=== PATIENT | female | born 1955 | race Caucasian/White ===

== ENCOUNTER → 2017-05-01 | Outpatient (CLI) | payer OTHER ==
[~2017-05-01] MED LIST: ? ANTIDEPRESSANT; ALBIPROI INH; ALBU.083IS IH; ALBU3IS INH; ALBU90OI; ALBU90OI INH; ALBU90OI6 INH; ALBU90OI61; ALBU90OI61 INH; ALBUIS IH; AMLO5; AMLO5 PO; ARIP15 PO; ARIP20; ARIP30 PO; ASPI325 PO; ATORVASTATIN; AZIT250; AZIT250 PO; AZIT500 PO; BECL40OI INH; BECL80OI INH; BENZ100A PO; BUDE6HFA; BUDE6HFA INH; CHOL10002; CLON2 PO; DIPH25; DIPH25 PO; DIPH50; DOXY100 PO; Duoneb 2.5-0.5 M3 ML INH; ERYT333ERA PO; ESCI20; ESCI5; FLUSAL2505; FLUT44OIA; FURO20 PO; FURO40 PO; GABA300 PO; GUAI600T33 PO; HYDACE10B; HYDACE10B PO; HYDACE5; HYDACE5 PO; HYDACE5325 PO; HYDCHL25; HYDCHL25 PO; HYDGUAL120 PO; HYDPAM25; LAMO100; LISHYD1012; LISHYD1012 PO; LISI20; LISI5 PO; LISINOPRIL; Lasix40 MG PO; METCAR500 PO; METF500 PO; METF500C PO; METO2.5 PO; METPRE4DP PO; MONT10T; MONT10T PO; NAPR500; NITR.4SL SL; NITR.6SL SC; Nitrostat0.4 MG SL; OXYACE5T PO; OXYACE7.5T PO; OXYB5; POTCHL10ER PO; PRAV20; PRAV20 PO; PRAV40 PO; PRED10 PO; PRED20 PO; PRED5 PO; Pravachol80 MG PO; Prednisone50 MG PO; Prinivil10 MG PO; RANI150; RANI150 PO; RXCODGUASY PO; RXDIPHSY PO; RXHYDGUAS PO; RXHYDMOR2 PO; RXLORA1 PO; SERT100; SPIHYD; SPIR25 PO; SULTRIDS PO; TERB250; TIOT18; TIOT18 IH; TIOT18 PO; TOLT2ER; TRAZ150T57 PO; Ventolin Soln3 ML INH; WATER PILL; Zantac150 MG PO; [UNRECOGNIZED DRUG - CODE]; [UNRECOGNIZED DRUG - REMARK]
== END ==
LOC: LAB 10:46
DX: R82.99 Other abnormal findings in urine (principal)
CPT/HCPCS: 87086

== ENCOUNTER → 2017-06-20 | Outpatient (CLI) | payer OTHER | END | disposition home or self-care (01) | LOC: LAB 14:47 | DX: N39.0 Urinary tract infection, site not specified (principal) | CPT/HCPCS: 87077; 87086; 87186 ==

== ENCOUNTER → 2017-10-12 | Outpatient (CLI) | payer OTHER ==
[~2017-10-12] MED LIST changes: -ATORVASTATIN; -Duoneb 2.5-0.5 M3 ML INH; -METF500C PO; -PRED5 PO; -Prednisone50 MG PO
[2017-10-12 20:37] LABS: Alanine Aminotransfer (ALT/SGP 33 U/L (12-78); Albumin, Blood 3.7 g/dL (3.4-5.0); Albumin/Globulin Ratio 1.2 (0.8-1.8); Alk Phos 84 U/L (50-136); Anion Gap 9 mmol/L (6-16); Aspartate Aminotrans (AST/SGOT 21 U/L (12-37); Bilirubin, Total 0.4 mg/dL (0.1-1.0); Blood Urea Nitrogen 13 mg/dL (8-24); Bun/Creatinine Ratio 15.2 (12.0-20.0); CO2, Blood 26 mmol/L (21-32); Calcium, Blood 8.9 mg/dL (8.5-10.1); Chloride, Blood 103 mmol/L (98-108); Creatinine, Blood 0.85 mg/dL (0.40-1.00); Globulin, Blood 3.2 g/dL (2.2-4.0); Glomerular Filtration Rate >60 (60-); Glucose, Blood 92 mg/dL (70-99); Potassium, Blood 3.7 mmol/L (3.5-5.5); Sodium, Blood 138 mmol/L (136-145); Total Protein, Blood 6.9 g/dL (6.4-8.2)
== END ==
LOC: LAB 17:03 → LAB SHORT 17:03
DX: N39.0 Urinary tract infection, site not specified (principal)
CPT/HCPCS: 80053; 87086

== ENCOUNTER 2017-10-28 17:14 | Emergency (ER) | payer OTHER ==
[~2017-10-28] VITALS: Ht 165.1 cm; Wt 105.2 kg
[~2017-10-28 17:14] MED LIST changes: +ATORVASTATIN; +Duoneb 2.5-0.5 M3 ML INH; +METF500C PO; +Prednisone50 MG PO
[2017-10-28] MEDS ORDERED: PRED5 PO (17:44)
== END 2017-10-28 17:52 | disposition home or self-care (01) ==
LOC: ER 17:14
DX: Z76.0 Encounter for issue of repeat prescription (principal); J44.9 Chronic obstructive pulmonary disease, unspecified; I10 Essential (primary) hypertension; F31.9 Bipolar disorder, unspecified; E11.9 Type 2 diabetes mellitus without complications; F17.210 Nicotine dependence, cigarettes, uncomplicated; Z88.8 Allergy status to other drugs, medicaments and biological substances; Z79.899 Other long term (current) drug therapy; Z79.84 Long term (current) use of oral hypoglycemic drugs; Z79.82 Long term (current) use of aspirin
CPT/HCPCS: 99281

== ENCOUNTER → 2017-10-30 | Outpatient (CLI) | payer OTHER ==
[~2017-10-30] MED LIST changes: +PRED5 PO
[2017-10-30 19:24] LABS: Albumin, Blood 3.5 g/dL (3.4-5.0); Bilirubin, Total 0.4 mg/dL (0.1-1.0); Bun/Creatinine Ratio 18.3 (12.0-20.0); Calcium, Blood 8.9 mg/dL (8.5-10.1); Creatinine, Blood 1.2 mg/dL (0.40-1.00); Globulin, Blood 3.4 g/dL (2.2-4.0); Potassium, Blood 4.1 mmol/L (3.5-5.5); Total Protein, Blood 6.9 g/dL (6.4-8.2)
== END ==
LOC: LAB SHORT 19:10 → LAB EV 19:10
PROVIDERS: Physician Assistant Medical
DX: R60.9 Edema, unspecified (principal)
CPT/HCPCS: 80053; 83880

== ENCOUNTER 2017-11-20 21:07 | Emergency (ER) | payer OTHER ==
[~2017-11-20] VITALS: Ht 165.1 cm; Wt 104.3 kg
== END 2017-11-20 22:29 | disposition left against medical advice (07) ==
LOC: ER 21:07
DX: Z53.21 Procedure and treatment not carried out due to patient leaving prior to being seen by health care provider (principal)
CPT/HCPCS: 82947

== ENCOUNTER → 2017-11-28 | Outpatient (CLI) | payer OTHER | END | disposition home or self-care (01) | LOC: LAB SHORT 19:00 → LAB EV 19:00 | DX: R30.0 Dysuria (principal); R35.0 Frequency of micturition | CPT/HCPCS: 87086 ==

== ENCOUNTER → 2017-12-13 | Outpatient (CLI) | payer OTHER | LOC: LAB SHORT 16:00 → LAB SRC 16:00 | DX: R30.0 Dysuria (principal) | CPT/HCPCS: 87086 ==

== ENCOUNTER → 2018-06-03 | Outpatient (CLI) | payer OTHER ==
[2018-06-05 12:07] LABS: HPV 16 Negative (Negative); HPV 18 Negative (Negative); HPV OTHER HR TYPES Negative (Negative)
== END | disposition home or self-care (01) ==
LOC: LAB SHORT 17:57 → LAB 17:57
PROVIDERS: Nurse Practitioner Women's Health
DX: Z12.72 Encounter for screening for malignant neoplasm of vagina (principal); Z91.89 Other specified personal risk factors, not elsewhere classified
CPT/HCPCS: 87624; G0123

== ENCOUNTER 2018-08-31 10:20 | Emergency (ER) | payer OTHER ==
[~2018-08-31] VITALS: Ht 157.5 cm; Wt 127.0 kg
[2018-08-31 11:28] LABS: BASOPHILS ABSOLUTE AUTO 0.03 K/mm3 (0.00-0.23); BASOPHILS PERCENT AUTO 1 % (0-2); EOSINOPHILS ABSOLUTE AUTO 0.18 K/mm3 (0.00-0.68); EOSINOPHILS PERCENT AUTO 3 % (0-6); Hematocrit 40.1 % (33.0-51.0); Hemoglobin 12.8 g/dL (11.5-16.0); IMMATURE GRAN ABSOLUTE AUTO 0.03 K/mm3 (0.00-0.10); IMMATURE GRAN PERCENT AUTO 1 % (0-1); LYMPHOCYTES ABSOLUTE AUTO 1.13 K/mm3 (0.84-5.20); LYMPHOCYTES PERCENT AUTO 18 % (21-46); MONOCYTES ABSOLUTE AUTO 0.58 K/mm3 (0.16-1.47); MONOCYTES PERCENT AUTO 9 % (4-13); Mean Corpuscular HGB 30.3 pg (26.0-34.0); Mean Corpuscular HGB Conc 31.9 g/dL (31.5-36.5); Mean Corpuscular Volume 95 fL (80-100); Mean Platelet Volume 10.5 fL (9.1-12.4); NEUTROPHILS ABSOLUTE AUTO 4.33 K/mm3 (1.96-9.15); NEUTROPHILS PERCENT AUTO 69 % (41-73); Platelet Count 206 K/mm3 (150-400); RDW Coefficient Variation 12.7 % (11.7-14.2); RDW Standard Deviation 44.6 fL (35.1-46.3); Red Blood Cell Count 4.22 M/mm3 (3.80-5.20); White Blood Cell Count 6.28 K/mm3 (4.00-11.30)
[2018-08-31 11:51] LABS: Alanine Aminotransfer (ALT/SGP 27 U/L (12-78); Albumin, Blood 3.4 g/dL (3.4-5.0); Alk Phos 107 U/L (50-136); Anion Gap 7 mmol/L (6-16); Aspartate Aminotrans (AST/SGOT 16 U/L (12-37); Bilirubin, Total 0.3 mg/dL (0.1-1.0); Blood Urea Nitrogen 17 mg/dL (8-24); CO2, Blood 22 mmol/L (21-32); Calcium, Blood 8.7 mg/dL (8.5-10.1); Chloride, Blood 111 mmol/L (98-108); Globulin, Blood 3.3 g/dL (2.2-4.0); Glomerular Filtration Rate >60 (60-); Glucose, Blood 104 mg/dL (70-99); Potassium, Blood 4.6 mmol/L (3.5-5.5); Sodium, Blood 140 mmol/L (136-145); Total Protein, Blood 6.7 g/dL (6.4-8.2); Troponin I <0.015 ng/mL (0.000-0.040)
== END 2018-08-31 16:32 | disposition home or self-care (01) ==
LOC: ER 10:20
PROVIDERS: Emergency Medicine
DX: R07.9 Chest pain, unspecified (principal); J44.9 Chronic obstructive pulmonary disease, unspecified; I10 Essential (primary) hypertension; E11.9 Type 2 diabetes mellitus without complications; F31.9 Bipolar disorder, unspecified; F17.210 Nicotine dependence, cigarettes, uncomplicated; Z88.8 Allergy status to other drugs, medicaments and biological substances; Z88.1 Allergy status to other antibiotic agents; Z79.899 Other long term (current) drug therapy; Z79.52 Long term (current) use of systemic steroids; Z79.82 Long term (current) use of aspirin
CPT/HCPCS: 36415; 71046; 80053; 83690; 84484; 85025; 93005; 93010; 99285-25

== ENCOUNTER 2018-09-01 11:14 | Emergency (ER) | payer OTHER ==
[~2018-09-01] VITALS: Ht 165.1 cm; Wt 117.9 kg
[2018-09-01 12:18] LABS: BASOPHILS ABSOLUTE AUTO 0.03 K/mm3 (0.00-0.23); BASOPHILS PERCENT AUTO 1 % (0-2); EOSINOPHILS ABSOLUTE AUTO 0.16 K/mm3 (0.00-0.68); EOSINOPHILS PERCENT AUTO 3 % (0-6); Hematocrit 39.5 % (33.0-51.0); Hemoglobin 12.9 g/dL (11.5-16.0); IMMATURE GRAN ABSOLUTE AUTO 0.03 K/mm3 (0.00-0.10); IMMATURE GRAN PERCENT AUTO 1 % (0-1); LYMPHOCYTES ABSOLUTE AUTO 1.09 K/mm3 (0.84-5.20); LYMPHOCYTES PERCENT AUTO 17 % (21-46); MONOCYTES ABSOLUTE AUTO 0.44 K/mm3 (0.16-1.47); MONOCYTES PERCENT AUTO 7 % (4-13); Mean Corpuscular HGB 30.4 pg (26.0-34.0); Mean Corpuscular HGB Conc 32.7 g/dL (31.5-36.5); Mean Corpuscular Volume 93 fL (80-100); Mean Platelet Volume 10.7 fL (9.1-12.4); NEUTROPHILS ABSOLUTE AUTO 4.54 K/mm3 (1.96-9.15); NEUTROPHILS PERCENT AUTO 72 % (41-73); Platelet Count 234 K/mm3 (150-400); RDW Coefficient Variation 12.8 % (11.7-14.2); RDW Standard Deviation 43.6 fL (35.1-46.3); Red Blood Cell Count 4.24 M/mm3 (3.80-5.20); White Blood Cell Count 6.29 K/mm3 (4.00-11.30)
[2018-09-01 12:29] LABS: Alanine Aminotransfer (ALT/SGP 27 U/L (12-78); Albumin, Blood 3.5 g/dL (3.4-5.0); Albumin/Globulin Ratio 1.1 (0.8-1.8); Alk Phos 107 U/L (50-136); Anion Gap 7 mmol/L (6-16); Aspartate Aminotrans (AST/SGOT 11 U/L (12-37); Bilirubin, Total 0.3 mg/dL (0.1-1.0); Blood Urea Nitrogen 18 mg/dL (8-24); Bun/Creatinine Ratio 16.2 (12.0-20.0); CO2, Blood 26 mmol/L (21-32); Calcium, Blood 9.3 mg/dL (8.5-10.1); Chloride, Blood 109 mmol/L (98-108); Creatinine, Blood 1.11 mg/dL (0.40-1.00); Globulin, Blood 3.3 g/dL (2.2-4.0); Glomerular Filtration Rate 53 (60-); Glucose, Blood 133 mg/dL (70-99); Potassium, Blood 4.2 mmol/L (3.5-5.5); Sodium, Blood 142 mmol/L (136-145); Total Protein, Blood 6.8 g/dL (6.4-8.2); Troponin I <0.015 ng/mL (0.000-0.040)
== END 2018-09-01 13:26 | disposition home or self-care (01) ==
LOC: ER 11:14
PROVIDERS: Emergency Medicine
DX: R07.9 Chest pain, unspecified (principal); J44.9 Chronic obstructive pulmonary disease, unspecified; I10 Essential (primary) hypertension; E11.9 Type 2 diabetes mellitus without complications; F31.9 Bipolar disorder, unspecified; F17.210 Nicotine dependence, cigarettes, uncomplicated; Z88.8 Allergy status to other drugs, medicaments and biological substances; Z79.899 Other long term (current) drug therapy; Z79.82 Long term (current) use of aspirin
CPT/HCPCS: 36415; 80053; 83690; 84484; 85025; 93005; 93010; 99285-25

== ENCOUNTER → 2018-12-30 | Outpatient (CLI) | payer OTHER | END | disposition home or self-care (01) | LOC: LAB SHORT 14:44 → LAB UCHC 14:44 | DX: R10.9 Unspecified abdominal pain (principal) | CPT/HCPCS: 87086 ==

== ENCOUNTER 2019-08-01 14:47 | Emergency (ER) | payer OTHER ==
[~2019-08-01] VITALS: Ht 165.1 cm; Wt 117.9 kg
[2019-08-01 15:37] LABS: BASOPHILS ABSOLUTE AUTO 0.05 K/mm3 (0.00-0.23); BASOPHILS PERCENT AUTO 1 % (0-2); EOSINOPHILS ABSOLUTE AUTO 0.19 K/mm3 (0.00-0.68); EOSINOPHILS PERCENT AUTO 2 % (0-6); Hematocrit 48.2 % (33.0-51.0); Hemoglobin 15.4 g/dL (11.5-16.0); IMMATURE GRAN ABSOLUTE AUTO 0.04 K/mm3 (0.00-0.10); IMMATURE GRAN PERCENT AUTO 1 % (0-1); LYMPHOCYTES ABSOLUTE AUTO 1.61 K/mm3 (0.84-5.20); LYMPHOCYTES PERCENT AUTO 19 % (21-46); MONOCYTES ABSOLUTE AUTO 0.88 K/mm3 (0.16-1.47); MONOCYTES PERCENT AUTO 11 % (4-13); Mean Corpuscular HGB 29.4 pg (26.0-34.0); Mean Corpuscular Volume 92 fL (80-100); Mean Platelet Volume 11.6 fL (9.1-12.4); NEUTROPHILS ABSOLUTE AUTO 5.65 K/mm3 (1.96-9.15); NEUTROPHILS PERCENT AUTO 67 % (41-73); Platelet Count 214 K/mm3 (150-400); RDW Coefficient Variation 13.3 % (11.7-14.2); RDW Standard Deviation 45.2 fL (35.1-46.3); Red Blood Cell Count 5.23 M/mm3 (3.80-5.20); White Blood Cell Count 8.42 K/mm3 (4.00-11.30)
[2019-08-01 15:58] LABS: Alanine Aminotransfer (ALT/SGP 62 U/L (12-78); Albumin, Blood 3.7 g/dL (3.4-5.0); Albumin/Globulin Ratio 1.1 (0.8-1.8); Alk Phos 117 U/L (50-136); Anion Gap 6 mmol/L (6-16); Aspartate Aminotrans (AST/SGOT 22 U/L (12-37); Bilirubin, Total 0.4 mg/dL (0.1-1.0); Blood Urea Nitrogen 16 mg/dL (8-24); Bun/Creatinine Ratio 15.8 (12.0-20.0); CO2, Blood 24 mmol/L (21-32); Calcium, Blood 8.7 mg/dL (8.5-10.1); Chloride, Blood 111 mmol/L (98-108); Creatinine, Blood 1.01 mg/dL (0.40-1.00); Globulin, Blood 3.3 g/dL (2.2-4.0); Glomerular Filtration Rate 59 (60-); Glucose, Blood 87 mg/dL (70-99); Potassium, Blood 3.9 mmol/L (3.5-5.5); Sodium, Blood 141 mmol/L (136-145); Troponin I <0.015 ng/mL (0.000-0.040)
== END 2019-08-01 16:50 | disposition left against medical advice (07) ==
LOC: ER 14:47
PROVIDERS: Emergency Medicine
DX: Z53.21 Procedure and treatment not carried out due to patient leaving prior to being seen by health care provider (principal)
CPT/HCPCS: 36415; 71046; 80053; 83880; 84484; 85025; 93005; 93010; 99285-25

== ENCOUNTER → 2019-10-02 | Outpatient (CLI) | payer OTHER ==
[2019-10-03 14:51] LABS: Stool Occult Bld Immuno 1 Negative (NEGATIVE); Stool Occult Bld Immuno 2 Negative (NEGATIVE)
== END | disposition home or self-care (01) ==
LOC: LAB SHORT 08:00 → LAB SRC 08:00 → LAB FUT 09-29 13:35
PROVIDERS: Internal Medicine Gastroenterology
DX: Z12.11 Encounter for screening for malignant neoplasm of colon (principal); Z13.818 Encounter for screening for other digestive system disorders
CPT/HCPCS: G0328

== ENCOUNTER → 2019-11-13 | Outpatient (CLI) | payer OTHER ==
[2019-11-14 16:08] LABS: HPV 16 Negative (Negative); HPV 18 Negative (Negative); HPV OTHER HR TYPES Negative (Negative)
== END ==
LOC: LAB SHORT 17:28 → LAB 17:28
PROVIDERS: Nurse Practitioner Family
DX: Z12.4 Encounter for screening for malignant neoplasm of cervix (principal)
CPT/HCPCS: 87624; G0123

== ENCOUNTER 2021-01-18 14:24 | Inpatient (IN) | payer OTHER ==
[~2021-01-18] VITALS: Ht 162.6 cm; Wt 124.4 kg
[2021-01-18] MEDS ORDERED: ABILIFY MYCITE20 M2 PO (15:27)
[2021-01-18] MEDS ORDERED: TORS10 PO (15:29)
[2021-01-18 15:34] LABS: BASOPHILS ABSOLUTE AUTO 0.04 K/mm3 (0.00-0.23); BASOPHILS PERCENT AUTO 1 % (0-2); EOSINOPHILS ABSOLUTE AUTO 0.15 K/mm3 (0.00-0.68); EOSINOPHILS PERCENT AUTO 2 % (0-6); Hematocrit 45.8 % (33.0-51.0); Hemoglobin 14.9 g/dL (11.5-16.0); IMMATURE GRAN ABSOLUTE AUTO 0.04 K/mm3 (0.00-0.10); IMMATURE GRAN PERCENT AUTO 1 % (0-1); LYMPHOCYTES ABSOLUTE AUTO 1.55 K/mm3 (0.84-5.20); LYMPHOCYTES PERCENT AUTO 20 % (21-46); MONOCYTES ABSOLUTE AUTO 0.72 K/mm3 (0.16-1.47); MONOCYTES PERCENT AUTO 9 % (4-13); Mean Corpuscular HGB 29.2 pg (26.0-34.0); Mean Corpuscular HGB Conc 32.5 g/dL (31.5-36.5); Mean Corpuscular Volume 90 fL (80-100); NEUTROPHILS ABSOLUTE AUTO 5.12 K/mm3 (1.96-9.15); NEUTROPHILS PERCENT AUTO 67 % (41-73); Platelet Count 268 K/mm3 (150-400); RDW Coefficient Variation 13.2 % (11.7-14.2); RDW Standard Deviation 43.7 fL (35.1-46.3); White Blood Cell Count 7.62 K/mm3 (4.00-11.30)
[2021-01-18 15:57] LABS: Magnesium, Blood 2.5 mg/dL (1.6-2.4); Troponin I <0.015 ng/mL (0.000-0.040)
[2021-01-18 15:58] LABS: Anion Gap 6 mmol/L (6-16); Blood Urea Nitrogen 12 mg/dL (8-24); Bun/Creatinine Ratio 10.2 (12.0-20.0); CO2, Blood 29 mmol/L (21-32); Calcium, Blood 9.2 mg/dL (8.5-10.1); Chloride, Blood 105 mmol/L (98-108); Creatinine, Blood 1.18 mg/dL (0.40-1.00); Glomerular Filtration Rate 46 (60-); Glucose, Blood 99 mg/dL (70-99); Potassium, Blood 3.8 mmol/L (3.5-5.5); Sodium, Blood 140 mmol/L (136-145)
[2021-01-18 16:41] LABS: SARS-Cov-2 (COVID-19) PCR, MMC NEGATIVE (NEGATIVE)
[2021-01-18] MEDS ORDERED: BREO ELLIPTA 11 EAC1 INH (20:42)
[2021-01-18] MEDS ORDERED: FAMO20 PO (20:42)
[2021-01-18] MEDS ORDERED: DOCU100 PO (20:43)
[2021-01-19 02:50] LABS: Source, Urine Clean Catch
[2021-01-19 02:54] LABS: Bilirubin, Urine Neg (Neg); Blood, Urine Neg (Neg); Glucose Qualitative, Urine Neg (Neg); Ketones, Urine Neg (Neg); Leukocyte Esterase, Urine 1+ (Neg); Nitrite, Urine Neg (Neg); Protein, Urine 1+ (Neg); Specific Gravity, Urine 1.025 (1.003-1.022); Urobilinogen, Urine NORM (Normal)
[2021-01-19 03:05] LABS: Color, Urine Yellow (P-Yellow)
[2021-01-19 03:06] LABS: Appearance, Urine Hazy (Clear)
[2021-01-19 03:07] LABS: Bacteria Many /hpf; Red Blood Cells, Urine Not Seen /hpf (0-2); Squamous Epithelial Cells Many /hpf (Few)
[2021-01-19 05:01] LABS: BASOPHILS ABSOLUTE AUTO 0.06 K/mm3 (0.00-0.23); BASOPHILS PERCENT AUTO 1 % (0-2); EOSINOPHILS ABSOLUTE AUTO 0.19 K/mm3 (0.00-0.68); EOSINOPHILS PERCENT AUTO 2 % (0-6); Hematocrit 47.5 % (33.0-51.0); Hemoglobin 15.2 g/dL (11.5-16.0); IMMATURE GRAN ABSOLUTE AUTO 0.07 K/mm3 (0.00-0.10); IMMATURE GRAN PERCENT AUTO 1 % (0-1); LYMPHOCYTES ABSOLUTE AUTO 2.25 K/mm3 (0.84-5.20); LYMPHOCYTES PERCENT AUTO 27 % (21-46); MONOCYTES ABSOLUTE AUTO 0.88 K/mm3 (0.16-1.47); MONOCYTES PERCENT AUTO 11 % (4-13); Mean Corpuscular HGB 29.3 pg (26.0-34.0); Mean Corpuscular Volume 92 fL (80-100); Mean Platelet Volume 11.2 fL (9.1-12.4); NEUTROPHILS ABSOLUTE AUTO 4.96 K/mm3 (1.96-9.15); NEUTROPHILS PERCENT AUTO 59 % (41-73); Platelet Count 277 K/mm3 (150-400); RDW Coefficient Variation 13.4 % (11.7-14.2); RDW Standard Deviation 45.2 fL (35.1-46.3); Red Blood Cell Count 5.19 M/mm3 (3.80-5.20); White Blood Cell Count 8.41 K/mm3 (4.00-11.30)
--- NOTE | 2021-01-19 05:12 | NUR ---
SHIFT SUMMARY: ADMITTED LAST NIGHT FOR SYMPTOMATIC BIGEMERY. ARRIVED TO THE FLOOR VIA GURNEY, ABLE TO TRANSFER SELF TO THE BED. AOX3, COOPERATIVE. STATES 1 WEEK OF SOB, NAUSEA AND DIZZINESS. OCCATIONAL PALPITATIONS. HR 40'S IN THE ER WITH OCCATIONAL PVC'S. TELE PLACED WITH SINUS VIANCA 40-50'S ALL NIGHT WITH PVC'S. DIZZINESS UPON STANDING AND AMBULATING. NAUSEA RESOLVED. NO SOB NOTED. VS WNL, AFEBRILE. NO PAIN. UA COMPLETED POSITIVE FOR UTI, CULTURE SENT. BNP SLIGHTLY ELEVATED 148, CREATINE 1.18, MAG 2.5, D-DIMER 0.66, AND GFR 46. SLEPT OFF AND ON T/O THE NIGHT. WILL CONTINUE TO MONITOR TILL DAY SHIFT ARRIVES.
[2021-01-19 05:22] LABS: Albumin, Blood 3.1 g/dL (3.4-5.0); Albumin/Globulin Ratio 0.8 (0.8-1.8); Bilirubin, Total 0.5 mg/dL (0.1-1.0); Bun/Creatinine Ratio 16.2 (12.0-20.0); Calcium, Blood 9.4 mg/dL (8.5-10.1); Creatinine, Blood 1.11 mg/dL (0.40-1.00); Globulin, Blood 3.7 g/dL (2.2-4.0); Potassium, Blood 3.9 mmol/L (3.5-5.5); Total Protein, Blood 6.8 g/dL (6.4-8.2)
[2021-01-19 10:36] LABS: Troponin I <0.015 ng/mL (0.000-0.040)
--- NOTE | 2021-01-19 12:00 | NUR ---
Dr. Singh was contacted about pt UA and no futher instructions from provider.
--- NOTE | 2021-01-19 19:50 | NUR ---
Shift summary, The patient is A/OX4 to person, place, time and event. The patient has a bright affect and is pleasent and cooperative with care. The patient is a 1 person standby assist to the BSC. She is on RA and denies any chest pain or SOB. The patient did request oxygen when taking a nap because her CPAP was uncomfertable to where and she was placed on 2lpm nc. The patient took a shower this afternoon. She had no acute changes this shift. The patient is resting in her bed.
--- NOTE | 2021-01-19 20:18 | NUR ---
PATIENT INSISTED ON LEAVING AMA. EDUCATED PATIENT ON CURRENT TREATMENT PLAN AND WHY MD'S WANTED HER TO STAY ONE MORE NIGHT FOR MONITORING HER HEART. CALLED TELE AND CONFIRMED CURRENT HR WAS 1ST DEGREE BLOCK WITH PVC COUPLETS VERY CONSISTENT. PATIENT STATES SHE NEVER HAS STAYED MORE THEN ONE NIGHT IN THE HOSPITAL. SHE HAS LEFT AMA SEVERAL TIMES AND CAN NOT STAY TONIGHT. SHE IS A SMOKER AND HAS TO SMOKE SHE STATED DISPITE HAVING NICOTINE PATCH. SHE VERBALIZED UNDERSTANDING OF RISK FACTORS INCLUDING IF SHE LEFT AMA. RIDE WAS CONFIRMED. PATIENT WALKED OUT TO RIDE. CHARGE NURSE INFORMED AND DR. KEANE NOTIFIED.
== END 2021-01-19 19:50 | disposition left against medical advice (07) | DRG 309 ==
LOC: ER 14:24 → MEDS 14:25 → ER 18:14 → MEDS 18:14
PROVIDERS: Internal Medicine Cardiovascular Disease; Student in an Organized Health Care Education/Training Program; ADMIT Internal Medicine
DX: R00.1 Bradycardia, unspecified (principal); Z68.42 Body mass index [BMI] 45.0-49.9, adult; Z20.822 Contact with and (suspected) exposure to COVID-19; R00.8 Other abnormalities of heart beat; I44.7 Left bundle-branch block, unspecified; I16.0 Hypertensive urgency; E66.01 Morbid (severe) obesity due to excess calories; Z23 Encounter for immunization; R82.90 Unspecified abnormal findings in urine; J44.9 Chronic obstructive pulmonary disease, unspecified; E11.22 Type 2 diabetes mellitus with diabetic chronic kidney disease; I12.9 Hypertensive chronic kidney disease with stage 1 through stage 4 chronic kidney disease, or unspecified chronic kidney disease; N18.31 Chronic kidney disease, stage 3a; F31.9 Bipolar disorder, unspecified; G47.33 Obstructive sleep apnea (adult) (pediatric); Z53.29 Procedure and treatment not carried out because of patient's decision for other reasons; I87.2 Venous insufficiency (chronic) (peripheral); F17.210 Nicotine dependence, cigarettes, uncomplicated; Z88.8 Allergy status to other drugs, medicaments and biological substances; Z79.899 Other long term (current) drug therapy; Z79.84 Long term (current) use of oral hypoglycemic drugs; Z79.82 Long term (current) use of aspirin; Z82.49 Family history of ischemic heart disease and other diseases of the circulatory system; Z87.440 Personal history of urinary (tract) infections
CPT/HCPCS: 36415; 70450; 71045; 80048; 80053; 81001; 82947; 83735; 83880; 84443; 84484; 85025; 85379; 87086; 90686; 93005; 93010; 94762; 99285-25; A9270; G0378; J1650; U0004

== ENCOUNTER 2021-03-22 16:57 | Emergency (ER) | payer OTHER ==
[~2021-03-22] VITALS: Ht 162.6 cm; Wt 123.4 kg
[~2021-03-22 16:57] MED LIST changes: +ABILIFY MYCITE20 M2 PO; +BREO ELLIPTA 11 EAC1 INH; +DOCU100 PO; +FAMO20 PO; +TORS10 PO
[2021-03-22 18:13] LABS: BASOPHILS ABSOLUTE AUTO 0.05 K/mm3 (0.00-0.23); BASOPHILS PERCENT AUTO 1 % (0-2); EOSINOPHILS PERCENT AUTO 1 % (0-6); Hemoglobin 14.7 g/dL (11.5-16.0); IMMATURE GRAN ABSOLUTE AUTO 0.02 K/mm3 (0.00-0.10); IMMATURE GRAN PERCENT AUTO 0 % (0-1); LYMPHOCYTES ABSOLUTE AUTO 1.81 K/mm3 (0.84-5.20); LYMPHOCYTES PERCENT AUTO 23 % (21-46); MONOCYTES ABSOLUTE AUTO 0.69 K/mm3 (0.16-1.47); MONOCYTES PERCENT AUTO 9 % (4-13); Mean Corpuscular HGB 29.3 pg (26.0-34.0); Mean Corpuscular HGB Conc 32.7 g/dL (31.5-36.5); Mean Corpuscular Volume 90 fL (80-100); Mean Platelet Volume 10.5 fL (9.1-12.4); NEUTROPHILS ABSOLUTE AUTO 5.19 K/mm3 (1.96-9.15); NEUTROPHILS PERCENT AUTO 66 % (41-73); Platelet Count 252 K/mm3 (150-400); RDW Coefficient Variation 13.2 % (11.7-14.2); RDW Standard Deviation 43.3 fL (35.1-46.3); Red Blood Cell Count 5.01 M/mm3 (3.80-5.20); White Blood Cell Count 7.86 K/mm3 (4.00-11.30)
[2021-03-22 18:41] LABS: Alanine Aminotransfer (ALT/SGP 31 U/L (12-78); Albumin, Blood 3.3 g/dL (3.4-5.0); Albumin/Globulin Ratio 1.1 (0.8-1.8); Alk Phos 89 U/L (50-136); Anion Gap 8 mmol/L (6-16); Aspartate Aminotrans (AST/SGOT 19 U/L (12-37); Bilirubin, Total 0.5 mg/dL (0.1-1.0); Blood Urea Nitrogen 17 mg/dL (8-24); Bun/Creatinine Ratio 17.8 (12.0-20.0); CO2, Blood 24 mmol/L (21-32); Calcium, Blood 8.9 mg/dL (8.5-10.1); Chloride, Blood 108 mmol/L (98-108); Creatinine, Blood 0.96 mg/dL (0.40-1.00); Glomerular Filtration Rate 59 (60-); Glucose, Blood 157 mg/dL (70-99); Potassium, Blood 4.4 mmol/L (3.5-5.5); Sodium, Blood 140 mmol/L (136-145); Total Protein, Blood 6.3 g/dL (6.4-8.2); Troponin I <0.015 ng/mL (0.000-0.040)
== END 2021-03-22 18:30 | disposition left against medical advice (07) ==
LOC: ER 16:57
PROVIDERS: Emergency Medicine
DX: Z53.21 Procedure and treatment not carried out due to patient leaving prior to being seen by health care provider (principal)
CPT/HCPCS: 36415; 80053; 83690; 83880; 84484; 85025; 93005; 93010

== ENCOUNTER → 2021-03-28 | Outpatient (CLI) | payer OTHER ==
[2021-03-28 10:03] LABS: BASOPHILS ABSOLUTE AUTO 0.04 K/mm3 (0.00-0.23); BASOPHILS PERCENT AUTO 1 % (0-2); EOSINOPHILS ABSOLUTE AUTO 0.14 K/mm3 (0.00-0.68); EOSINOPHILS PERCENT AUTO 2 % (0-6); Hematocrit 46.6 % (33.0-51.0); Hemoglobin 15.2 g/dL (11.5-16.0); IMMATURE GRAN ABSOLUTE AUTO 0.04 K/mm3 (0.00-0.10); IMMATURE GRAN PERCENT AUTO 1 % (0-1); LYMPHOCYTES ABSOLUTE AUTO 1.25 K/mm3 (0.84-5.20); LYMPHOCYTES PERCENT AUTO 18 % (21-46); MONOCYTES ABSOLUTE AUTO 0.63 K/mm3 (0.16-1.47); MONOCYTES PERCENT AUTO 9 % (4-13); Mean Corpuscular HGB 29.1 pg (26.0-34.0); Mean Corpuscular HGB Conc 32.6 g/dL (31.5-36.5); Mean Corpuscular Volume 89 fL (80-100); Mean Platelet Volume 10.6 fL (9.1-12.4); NEUTROPHILS PERCENT AUTO 70 % (41-73); Platelet Count 267 K/mm3 (150-400); RDW Coefficient Variation 13.7 % (11.7-14.2); RDW Standard Deviation 44.6 fL (35.1-46.3); Red Blood Cell Count 5.23 M/mm3 (3.80-5.20)
[2021-03-28 10:20] LABS: Albumin, Blood 3.6 g/dL (3.4-5.0); Albumin/Globulin Ratio 1.2 (0.8-1.8); Bilirubin, Total 0.3 mg/dL (0.1-1.0); Bun/Creatinine Ratio 16.2 (12.0-20.0); Calcium, Blood 9.3 mg/dL (8.5-10.1); Creatinine, Blood 0.99 mg/dL (0.40-1.00); Total Protein, Blood 6.6 g/dL (6.4-8.2)
== END | disposition home or self-care (01) ==
LOC: LAB SHORT 09:59 → LAB 09:59
PROVIDERS: Physician Assistant
DX: R60.9 Edema, unspecified (principal)
CPT/HCPCS: 80053; 83880; 85025

== ENCOUNTER 2021-05-16 17:27 | Emergency (ER) | payer OTHER ==
[~2021-05-16] VITALS: Ht 162.6 cm; Wt 127.0 kg
[2021-05-16] MEDS ORDERED: SPIRONOLACTONE25 MG PO (17:44)
[2021-05-16] MEDS ORDERED: MECL25 PO (17:44)
[2021-05-16] MEDS ORDERED: ZESTRIL40 M1 PO (17:45)
[2021-05-16] MEDS ORDERED: DILTIAZEM 24HR120 M4 PO (17:46)
[2021-05-16] MEDS ORDERED: Cetirizine HCl10 MG PO (17:46)
[2021-05-16] MEDS ORDERED: Benztropine Me0.5 MG PO (17:48)
[2021-05-16] MEDS ORDERED: BUDESONIDE-FO10.2 G2 INH (17:49)
[2021-05-16] MEDS ORDERED: ANORO ELLIPTA1 EAC1 INH (17:52)
[2021-05-16] MEDS ORDERED: Neurontin800 MG PO (17:53)
[2021-05-16 17:54] LABS: BASOPHILS ABSOLUTE AUTO 0.04 K/mm3 (0.00-0.23); BASOPHILS PERCENT AUTO 1 % (0-2); EOSINOPHILS ABSOLUTE AUTO 0.17 K/mm3 (0.00-0.68); EOSINOPHILS PERCENT AUTO 2 % (0-6); Hematocrit 45.3 % (33.0-51.0); Hemoglobin 14.5 g/dL (11.5-16.0); IMMATURE GRAN ABSOLUTE AUTO 0.03 K/mm3 (0.00-0.10); IMMATURE GRAN PERCENT AUTO 0 % (0-1); LYMPHOCYTES ABSOLUTE AUTO 1.63 K/mm3 (0.84-5.20); LYMPHOCYTES PERCENT AUTO 21 % (21-46); MONOCYTES PERCENT AUTO 8 % (4-13); Mean Corpuscular HGB 28.9 pg (26.0-34.0); Mean Corpuscular Volume 90 fL (80-100); NEUTROPHILS ABSOLUTE AUTO 5.47 K/mm3 (1.96-9.15); NEUTROPHILS PERCENT AUTO 69 % (41-73); Platelet Count 243 K/mm3 (150-400); RDW Coefficient Variation 13.4 % (11.7-14.2); RDW Standard Deviation 44.6 fL (35.1-46.3); Red Blood Cell Count 5.01 M/mm3 (3.80-5.20); White Blood Cell Count 7.94 K/mm3 (4.00-11.30)
[2021-05-16 18:15] LABS: Albumin, Blood 3.4 g/dL (3.4-5.0); Bilirubin, Total 0.5 mg/dL (0.1-1.0); Creatinine, Blood 1.21 mg/dL (0.40-1.00); Globulin, Blood 3.4 g/dL (2.2-4.0); Potassium, Blood 3.4 mmol/L (3.5-5.5); Total Protein, Blood 6.8 g/dL (6.4-8.2)
[2021-05-16 18:20] LABS: Base Excess Venous 7.9 mmol/L; Bicarbonate Venous 30.8 mmol/L (24.0-30.0); pH Blood Venous 7.47 (7.34-7.37)
[2021-05-16 21:07] LABS: PO2 Venous 159 mmHg (38-42)
[2021-05-16] MEDS ORDERED: DOXY100 PO (21:15)
[2021-05-16] MEDS ORDERED: PRED20 PO (21:15)
== END 2021-05-16 21:45 | disposition home or self-care (01) ==
LOC: ER 17:27
PROVIDERS: Emergency Medicine; Student in an Organized Health Care Education/Training Program
DX: J44.1 Chronic obstructive pulmonary disease with (acute) exacerbation (principal); I49.3 Ventricular premature depolarization; F17.210 Nicotine dependence, cigarettes, uncomplicated; I10 Essential (primary) hypertension; E11.9 Type 2 diabetes mellitus without complications; G47.33 Obstructive sleep apnea (adult) (pediatric); Z79.84 Long term (current) use of oral hypoglycemic drugs; Z20.822 Contact with and (suspected) exposure to COVID-19; Z79.899 Other long term (current) drug therapy; Z79.82 Long term (current) use of aspirin; Z88.8 Allergy status to other drugs, medicaments and biological substances; Z88.5 Allergy status to narcotic agent
CPT/HCPCS: 36415; 71045; 80053; 82803; 83880; 84484; 85025; 93005; 93010; 94640; 99285-25; A9270; J7512

== ENCOUNTER 2021-11-18 14:00 | Emergency (ER) | payer OTHER ==
[~2021-11-18] VITALS: Ht 162.6 cm; Wt 127.0 kg
[~2021-11-18 14:00] MED LIST changes: +ANORO ELLIPTA1 EAC1 INH; +BUDESONIDE-FO10.2 G2 INH; +Benztropine Me0.5 MG PO; +Cetirizine HCl10 MG PO; +DILTIAZEM 24HR120 M4 PO; +MECL25 PO; +Neurontin800 MG PO; +SPIRONOLACTONE25 MG PO; +ZESTRIL40 M1 PO
[2021-11-18 15:35] LABS: BASOPHILS ABSOLUTE AUTO 0.06 K/mm3 (0.00-0.23); BASOPHILS PERCENT AUTO 1 % (0-2); EOSINOPHILS PERCENT AUTO 2 % (0-6); Hematocrit 43.8 % (33.0-51.0); Hemoglobin 14.6 g/dL (11.5-16.0); IMMATURE GRAN ABSOLUTE AUTO 0.03 K/mm3 (0.00-0.10); IMMATURE GRAN PERCENT AUTO 0 % (0-1); LYMPHOCYTES ABSOLUTE AUTO 1.71 K/mm3 (0.84-5.20); LYMPHOCYTES PERCENT AUTO 21 % (21-46); MONOCYTES ABSOLUTE AUTO 0.72 K/mm3 (0.16-1.47); MONOCYTES PERCENT AUTO 9 % (4-13); Mean Corpuscular HGB 30.5 pg (26.0-34.0); Mean Corpuscular HGB Conc 33.3 g/dL (31.5-36.5); Mean Corpuscular Volume 92 fL (80-100); Mean Platelet Volume 10.5 fL (9.1-12.4); NEUTROPHILS ABSOLUTE AUTO 5.46 K/mm3 (1.96-9.15); NEUTROPHILS PERCENT AUTO 67 % (41-73); Platelet Count 257 K/mm3 (150-400); RDW Coefficient Variation 13.4 % (11.7-14.2); RDW Standard Deviation 45.8 fL (35.1-46.3); Red Blood Cell Count 4.78 M/mm3 (3.80-5.20); White Blood Cell Count 8.18 K/mm3 (4.00-11.30)
[2021-11-18 16:02] LABS: Albumin, Blood 3.6 g/dL (3.4-5.0); Albumin/Globulin Ratio 1.2 (0.8-1.8); Bilirubin, Total 0.5 mg/dL (0.1-1.0); Bun/Creatinine Ratio 24.1 (12.0-20.0); Calcium, Blood 8.7 mg/dL (8.5-10.1); Creatinine, Blood 1.33 mg/dL (0.40-1.00); Globulin, Blood 3.1 g/dL (2.2-4.0); Total Protein, Blood 6.7 g/dL (6.4-8.2)
== END 2021-11-18 17:51 | disposition left against medical advice (07) ==
LOC: ER 14:00
PROVIDERS: Physician Assistant
DX: R07.9 Chest pain, unspecified (principal); R11.0 Nausea; R06.02 Shortness of breath; Z53.21 Procedure and treatment not carried out due to patient leaving prior to being seen by health care provider
CPT/HCPCS: 36415; 71046; 80053; 84484; 85025; 93005; 93010

== ENCOUNTER → 2022-09-03 | Outpatient (CLI) | payer MEDICARE, OTHER | LOC: LAB SHORT 14:51 → LAB 14:51 | DX: N39.0 Urinary tract infection, site not specified (principal) | CPT/HCPCS: 87077; 87086; 87186 ==

== ENCOUNTER 2023-05-27 06:42 | Emergency (ER) | payer MEDICARE, OTHER ==
[~2023-05-27] VITALS: Ht 269.2 cm; Wt 124.7 kg
[2023-05-27] MEDS ORDERED: Percocet 5-3251 EACH PO (07:04)
[2023-05-27] MEDS ORDERED: Morphine Sulfate 4 MG/1 ML Injection IV ONE (07:40)
[2023-05-27 07:54] LABS: Albumin, Blood 3.4 g/dL (3.4-5.0); Albumin/Globulin Ratio 0.9 (0.8-1.8); Bilirubin, Total 0.4 mg/dL (0.1-1.0); Bun/Creatinine Ratio 24.8 (12.0-20.0); Calcium, Blood 9.5 mg/dL (8.5-10.1); Creatinine, Blood 1.25 mg/dL (0.40-1.00); Globulin, Blood 3.6 g/dL (2.2-4.0); Magnesium, Blood 2.2 mg/dL (1.6-2.4); Potassium, Blood 3.8 mmol/L (3.5-5.5)
[2023-05-27 08:06] LABS: BASOPHILS ABSOLUTE AUTO 0.06 K/mm3 (0.00-0.23); BASOPHILS PERCENT AUTO 0 % (0-2); EOSINOPHILS ABSOLUTE AUTO 0.18 K/mm3 (0.00-0.68); EOSINOPHILS PERCENT AUTO 1 % (0-6); Hematocrit 47.5 % (33.0-51.0); Hemoglobin 15.1 g/dL (11.5-16.0); IMMATURE GRAN ABSOLUTE AUTO 0.18 K/mm3 (0.00-0.10); IMMATURE GRAN PERCENT AUTO 1 % (0-1); LYMPHOCYTES ABSOLUTE AUTO 2.85 K/mm3 (0.84-5.20); LYMPHOCYTES PERCENT AUTO 21 % (21-46); MONOCYTES ABSOLUTE AUTO 1.06 K/mm3 (0.16-1.47); MONOCYTES PERCENT AUTO 8 % (4-13); Mean Corpuscular HGB 29.5 pg (26.0-34.0); Mean Corpuscular HGB Conc 31.8 g/dL (31.5-36.5); Mean Corpuscular Volume 93 fL (80-100); Mean Platelet Volume 11.1 fL (9.1-12.4); NEUTROPHILS ABSOLUTE AUTO 9.28 K/mm3 (1.96-9.15); NEUTROPHILS PERCENT AUTO 68 % (41-73); Platelet Count 260 K/mm3 (150-400); RDW Coefficient Variation 13.6 % (11.7-14.2); RDW Standard Deviation 47.2 fL (35.1-46.3); Red Blood Cell Count 5.11 M/mm3 (3.80-5.20); White Blood Cell Count 13.61 K/mm3 (4.00-11.30)
[2023-05-27] MEDS ORDERED: Amoxicillin/Clavulanate K 875 MG Tab PO ONE (09:05)
[2023-05-27 09:19] LABS: Source, Urine Clean Catch
[2023-05-27 09:28] LABS: Appearance, Urine Clear (Clear); Bilirubin, Urine Neg (Neg); Blood, Urine Neg (Neg); Glucose Qualitative, Urine Neg (Neg); Ketones, Urine Neg (Neg); Leukocyte Esterase, Urine Neg (Neg); Nitrite, Urine Neg (Neg); Protein, Urine Neg (Neg); Urobilinogen, Urine NORM (Normal)
[2023-05-27 09:33] LABS: Color, Urine Pale Yellow (P-Yellow)
[2023-05-27] MEDS ORDERED: OxyCODONE HCL 5 MG TAB PO ONE (09:55)
[2023-05-27] MEDS ORDERED: Nicotine Polacrilex 2 MG Gum PO ONE (10:00)
[2023-05-27] MEDS ORDERED: ONDA4ODT MM (10:01)
[2023-05-27] MEDS ORDERED: AMOCLA875 PO (10:01)
[2023-05-27] MEDS ORDERED: OXYC5 PO (10:01)
[2023-05-27 10:12] VITALS: BP 117/90
== END 2023-05-27 10:15 | disposition home or self-care (01) ==
LOC: ER 06:42
PROVIDERS: Student in an Organized Health Care Education/Training Program
DX: K52.9 Noninfective gastroenteritis and colitis, unspecified (principal); E86.0 Dehydration; I10 Essential (primary) hypertension; E78.5 Hyperlipidemia, unspecified; E11.9 Type 2 diabetes mellitus without complications; E03.9 Hypothyroidism, unspecified; Z79.4 Long term (current) use of insulin; Z79.84 Long term (current) use of oral hypoglycemic drugs; Z79.899 Other long term (current) drug therapy; Z88.5 Allergy status to narcotic agent
CPT/HCPCS: 74177; 80053; 81003; 83735; 85025; 96374-59; 99284-25; A9270; J2270; Q9967

== ENCOUNTER → 2023-05-29 | Outpatient (CLI) | payer MEDICARE, OTHER ==
[~2023-05-29] MED LIST changes: +AMOCLA875 PO; +ONDA4ODT MM; +OXYC5 PO; +Percocet 5-3251 EACH PO
== END ==
LOC: LAB EV 13:45 → LAB SHORT 13:45
DX: R93.89 Abnormal findings on diagnostic imaging of other specified body structures (principal)
CPT/HCPCS: 88305

== ENCOUNTER → 2023-12-18 | Outpatient (CLI) | payer MEDICARE, OTHER ==
[2023-12-18 15:33] LABS: BASOPHILS ABSOLUTE AUTO 0.07 K/mm3 (0.00-0.23); BASOPHILS PERCENT AUTO 1 % (0-2); EOSINOPHILS PERCENT AUTO 2 % (0-6); Hematocrit 45.2 % (33.0-51.0); Hemoglobin 14.8 g/dL (11.5-16.0); IMMATURE GRAN ABSOLUTE AUTO 0.04 K/mm3 (0.00-0.10); IMMATURE GRAN PERCENT AUTO 0 % (0-1); LYMPHOCYTES ABSOLUTE AUTO 1.38 K/mm3 (0.84-5.20); LYMPHOCYTES PERCENT AUTO 14 % (21-46); MONOCYTES ABSOLUTE AUTO 0.76 K/mm3 (0.16-1.47); MONOCYTES PERCENT AUTO 8 % (4-13); Mean Corpuscular HGB 29.7 pg (26.0-34.0); Mean Corpuscular HGB Conc 32.7 g/dL (31.5-36.5); Mean Corpuscular Volume 91 fL (80-100); Mean Platelet Volume 10.4 fL (9.1-12.4); NEUTROPHILS ABSOLUTE AUTO 7.32 K/mm3 (1.96-9.15); NEUTROPHILS PERCENT AUTO 75 % (41-73); Platelet Count 247 K/mm3 (150-400); RDW Coefficient Variation 13.8 % (11.7-14.2); RDW Standard Deviation 45.6 fL (35.1-46.3); Red Blood Cell Count 4.99 M/mm3 (3.80-5.20); White Blood Cell Count 9.77 K/mm3 (4.00-11.30)
[2023-12-18 15:44] LABS: Albumin, Blood 3.4 g/dL (3.4-5.0); Albumin/Globulin Ratio 0.9 (0.8-1.8); Bilirubin, Total 0.4 mg/dL (0.1-1.0); Bun/Creatinine Ratio 10.5 (12.0-20.0); Calcium, Blood 8.9 mg/dL (8.5-10.1); Creatinine, Blood 1.72 mg/dL (0.40-1.00); Globulin, Blood 3.7 g/dL (2.2-4.0); Potassium, Blood 3.8 mmol/L (3.5-5.5); Total Protein, Blood 7.1 g/dL (6.4-8.2)
== END | disposition home or self-care (01) ==
LOC: LAB 15:28 → LAB SHORT 15:28
PROVIDERS: Chiropractor
DX: R10.32 Left lower quadrant pain (principal)
CPT/HCPCS: 80053; 83690; 85025

== ENCOUNTER → 2024-03-10 | Outpatient (CLI) | payer OTHER ==
[2024-03-10 16:20] LABS: Bacterial Vaginosis PCR Negative (NEGATIVE); Candida glabrata-krusei, PCR NOT DETECTED (NOT DETECT)
[2024-03-10 16:25] LABS: Candida Group, PCR DETECTED (NOT DETECT)
== END | disposition home or self-care (01) ==
LOC: LAB 11:34 → LAB SHORT 11:34
PROVIDERS: Physician Assistant Medical
DX: L29.2 Pruritus vulvae (principal)
CPT/HCPCS: 87481; 87661; 87801

== ENCOUNTER → 2024-08-26 | Outpatient (CLI) | payer OTHER ==
[2024-08-26 10:11] LABS: BASOPHILS ABSOLUTE AUTO 0.05 K/mm3 (0.00-0.23); BASOPHILS PERCENT AUTO 1 % (0-2); EOSINOPHILS ABSOLUTE AUTO 0.13 K/mm3 (0.00-0.68); EOSINOPHILS PERCENT AUTO 2 % (0-6); Hematocrit 45.8 % (33.0-51.0); Hemoglobin 15.2 g/dL (11.5-16.0); IMMATURE GRAN ABSOLUTE AUTO 0.03 K/mm3 (0.00-0.10); IMMATURE GRAN PERCENT AUTO 0 % (0-1); LYMPHOCYTES ABSOLUTE AUTO 1.18 K/mm3 (0.84-5.20); LYMPHOCYTES PERCENT AUTO 14 % (21-46); MONOCYTES ABSOLUTE AUTO 0.76 K/mm3 (0.16-1.47); MONOCYTES PERCENT AUTO 9 % (4-13); Mean Corpuscular HGB 30.3 pg (26.0-34.0); Mean Corpuscular HGB Conc 33.2 g/dL (31.5-36.5); Mean Corpuscular Volume 91 fL (80-100); Mean Platelet Volume 10.9 fL (9.1-12.4); NEUTROPHILS ABSOLUTE AUTO 6.12 K/mm3 (1.96-9.15); NEUTROPHILS PERCENT AUTO 74 % (41-73); Platelet Count 240 K/mm3 (150-400); RDW Coefficient Variation 13.6 % (11.7-14.2); RDW Standard Deviation 45.9 fL (35.1-46.3); Red Blood Cell Count 5.02 M/mm3 (3.80-5.20); White Blood Cell Count 8.27 K/mm3 (4.00-11.30)
[2024-08-26 10:21] LABS: Albumin, Blood 3.7 g/dL (3.4-5.0); Albumin/Globulin Ratio 1.1 (0.8-1.8); Bilirubin, Total 0.4 mg/dL (0.1-1.0); Bun/Creatinine Ratio 15.3 (12.0-20.0); Calcium, Blood 9.5 mg/dL (8.5-10.1); Creatinine, Blood 1.18 mg/dL (0.40-1.00); Globulin, Blood 3.3 g/dL (2.2-4.0); Potassium, Blood 4.5 mmol/L (3.5-5.5)
== END ==
LOC: LAB 10:03 → LAB SHORT 10:03
PROVIDERS: Physician Assistant Medical
DX: R07.89 Other chest pain (principal)
CPT/HCPCS: 80053; 85025; 85379

== ENCOUNTER → 2025-03-10 | Outpatient (CLI) | payer OTHER ==
[2025-03-10 13:47] LABS: BASOPHILS ABSOLUTE AUTO 0.08 K/mm3 (0.00-0.23); BASOPHILS PERCENT AUTO 1 % (0-2); EOSINOPHILS ABSOLUTE AUTO 0.26 K/mm3 (0.00-0.68); EOSINOPHILS PERCENT AUTO 3 % (0-6); Hematocrit 45.6 % (33.0-51.0); Hemoglobin 14.5 g/dL (11.5-16.0); IMMATURE GRAN ABSOLUTE AUTO 0.04 K/mm3 (0.00-0.10); IMMATURE GRAN PERCENT AUTO 1 % (0-1); LYMPHOCYTES ABSOLUTE AUTO 1.77 K/mm3 (0.84-5.20); LYMPHOCYTES PERCENT AUTO 22 % (21-46); MONOCYTES ABSOLUTE AUTO 0.68 K/mm3 (0.16-1.47); MONOCYTES PERCENT AUTO 9 % (4-13); Mean Corpuscular HGB Conc 31.8 g/dL (31.5-36.5); Mean Corpuscular Volume 96 fL (80-100); NEUTROPHILS ABSOLUTE AUTO 5.09 K/mm3 (1.96-9.15); NEUTROPHILS PERCENT AUTO 64 % (41-73); NRBC ABSOLUTE 0.00 K/mm3 (0.00-0.02); NRBC Auto 0.0 /100 WBC (0.0-0.2); Platelet Count 219 K/mm3 (150-400); RDW Coefficient Variation 13.2 % (11.7-14.2); RDW Standard Deviation 46.9 fL (35.1-46.3)
[2025-03-10 14:49] LABS: Alanine Aminotransfer (ALT/SGP 40 U/L (12-78); Albumin, Blood 3.6 g/dL (3.4-5.0); Albumin/Globulin Ratio 1.2 (0.8-1.8); Anion Gap 9 mmol/L (3-11); Aspartate Aminotrans (AST/SGOT 18 U/L (12-37); Bilirubin, Total 0.3 mg/dL (0.1-1.0); Blood Urea Nitrogen 12 mg/dL (8-24); CHOL/HDL RATIO 3.2; CO2, Blood 23 mmol/L (21-32); Calcium, Blood 8.7 mg/dL (8.5-10.1); Chloride, Blood 109 mmol/L (98-108); Cholesterol 139 mg/dL (50-200); Creatinine, Blood 0.92 mg/dL (0.40-1.00); Globulin, Blood 3.1 g/dL (2.2-4.0); Glucose, Blood 127 mg/dL (70-99); HDL Cholesterol 43 mg/dL (>39); LDL/HDL RATIO 1.1; Low Density Lipoprotein Chol 47 mg/dL (0-110); Potassium, Blood 4.0 mmol/L (3.5-5.5); Sodium, Blood 137 mmol/L (136-145); Total Protein, Blood 6.7 g/dL (6.4-8.2); Triglycerides 246 mg/dL (30-160); Very Low Density Lipoprot Chol 49 mg/dL (6-32)
== END | disposition home or self-care (01) ==
LOC: LAB SHORT 11:51 → LAB 11:51
PROVIDERS: Nurse Practitioner Family
DX: Z13.6 Encounter for screening for cardiovascular disorders (principal); I10 Essential (primary) hypertension
CPT/HCPCS: 80053; 80061; 85025